=== PATIENT | male | born 1980 | race African-American/Black ===

== ENCOUNTER 2021-02-21 10:56 | Observation (INO) ==
[2021-02-21] MEDS ORDERED: SODIUM CHLORIDE 0.9% 1,000 ML IV STA (12:25)
[2021-02-21] MEDS ORDERED: METOCLOPRAMIDE 10 MG/2 ML VIAL IV STA (12:27)
[2021-02-21 12:38] LABS: Basophils % 0.4 % (0.0-0.8); Eosinophils % 0.1 % (0.00-10.9); Hematocrit 53.8 VOL% (42.0-52.0); Hemoglobin 18.1 GM/DL (14.0-18.0); Immature Granulocytes % 0.5 %; Immature Granulocytes Absolute 0.04 #; Lymphocytes # 1.1 10*3/uL (1.4-4.0); Lymphocytes % 13.7 % (21.2-54.2); Mean Corpuscular HGB Conc 33.6 GM/DL (32-36); Mean Corpuscular Volume 93.6 FL (87-102); Mean Platelet Volume 10.8 FL (9.6-12.0); Monocytes % 4.2 % (1.7-12.7); Neutrophils % 81.1 % (38.7-73.9); Platelet Count 229 T/CUMM (130-400); Red Blood Count 5.75 MC/CUMM (3.8-5.5); Red Cell Distribution Width 12.6 % (9.3-17.3); White Blood Count 7.7 T/CUMM (4-12)
[2021-02-21 12:52] LABS: Albumin 4.1 G/DL (3.4-5.0); Bilirubin,Total 0.4 MG/DL (0.20-1.00); Calcium 8.9 MG/DL (8.5-10.1); Osmolality,Calculated 272.2 MOS/KG (273-304); Potassium 4.7 MMOL/L (3.5-5.1); Total Protein 7.8 G/DL (6.4-8.2)
[2021-02-21] MEDS ORDERED: ACETAMINOPHEN 500 MG TABLET PO STA (12:54)
[2021-02-21 13:09] LABS: Platelet Estimate Normal
[2021-02-21 13:46] LABS: Sedimentation Rate-Westergren 5 MM/HR (0-15)
[2021-02-21] MEDS ORDERED: DEXTROSE 50% 25 GM/50 ML VIAL IV PRN (14:29)
[2021-02-21] MEDS ORDERED: GLUCAGON 1 MG VIAL IM PRN (14:29)
[2021-02-21] MEDS ORDERED: ACETAMINOPHEN 500 MG TABLET PO PRN (14:30)
[2021-02-21] MEDS ORDERED: PROMETHAZINE 25 MG/1 ML VIAL IM PRN (14:30)
[2021-02-21] MEDS ORDERED: ONDANSETRON 4 MG/2 ML VIAL IV PRN (14:30)
[2021-02-21] MEDS ORDERED: amLODIPine 5 MG TABLET PO ONE (15:20)
[2021-02-21] MEDS ORDERED: hydrALAZINE 20 MG/1 ML VIAL IV PRN (15:21)
[2021-02-21 15:25] LABS: Risk Ratio 3.98; Thyroid Stimulating Hormone 0.624 uIU/ml (0.358-3.74); VLDL Cholesterol 24.8 MG/DL
[2021-02-21] MEDS: KETOROLAC 30 MG/1 ML VIAL IV PRN (15:39)
[2021-02-21] MEDS: INSULIN LISPRO 100 UNIT/ML SUBCUT SCH ×2 (16:37→21:25)
[2021-02-21] MEDS: LACTATED RINGERS 1,000 ML IV SCH (16:49)
[2021-02-21] MEDS: SUMAtriptan 6 MG/0.5 ML VIAL SUBCUT PRN (21:25)
[2021-02-22] MEDS: KETOROLAC 30 MG/1 ML VIAL IV PRN ×3 (02:07→20:46)
[2021-02-22] MEDS: LACTATED RINGERS 1,000 ML IV SCH ×3 (02:22→20:46)
[2021-02-22 04:20] LABS: Basophils % 0.4 % (0.0-0.8); Eosinophils # 0.2 10*3/uL (0.0-0.87); Hematocrit 48.6 VOL% (42.0-52.0); Immature Granulocytes % 0.6 %; Immature Granulocytes Absolute 0.05 #; Lymphocytes # 2.7 10*3/uL (1.4-4.0); Lymphocytes % 33.3 % (21.2-54.2); Mean Corpuscular HGB Conc 32.3 GM/DL (32-36); Mean Platelet Volume 11.2 FL (9.6-12.0); Monocytes % 7.4 % (1.7-12.7); Neutrophils % 56.3 % (38.7-73.9); Platelet Count 220 T/CUMM (130-400); Red Blood Count 5.17 MC/CUMM (3.8-5.5); Red Cell Distribution Width 12.5 % (9.3-17.3); White Blood Count 8.2 T/CUMM (4-12)
[2021-02-22 04:40] LABS: Hemoglobin 15.7 GM/DL (14.0-18.0)
[2021-02-22 04:52] LABS: Albumin 3.3 G/DL (3.4-5.0); Bilirubin,Total 0.6 MG/DL (0.20-1.00); Calcium 8.2 MG/DL (8.5-10.1); Osmolality,Calculated 274.8 MOS/KG (273-304); Potassium 3.7 MMOL/L (3.5-5.1); Total Protein 6.3 G/DL (6.4-8.2)
[2021-02-22] MEDS: INSULIN LISPRO 100 UNIT/ML SUBCUT SCH ×4 (07:49→20:48)
[2021-02-22] MEDS: amLODIPine 5 MG TABLET PO SCH (09:08)
[2021-02-22] MEDS: SUMAtriptan 6 MG/0.5 ML VIAL SUBCUT PRN ×2 (09:09→15:05)
[2021-02-22] MEDS ORDERED: ZIPRASIDONE 20 MG/1 ML VIAL IM ONE (11:00)
[2021-02-23 05:03] LABS: Basophils % 0.5 % (0.0-0.8); Eosinophils # 0.3 10*3/uL (0.0-0.87); Eosinophils % 3.5 % (0.00-10.9); Hematocrit 49.3 VOL% (42.0-52.0); Hemoglobin 15.9 GM/DL (14.0-18.0); Immature Granulocytes % 0.4 %; Immature Granulocytes Absolute 0.03 #; Lymphocytes # 2.7 10*3/uL (1.4-4.0); Lymphocytes % 33.3 % (21.2-54.2); Mean Corpuscular HGB Conc 32.3 GM/DL (32-36); Mean Corpuscular Volume 94.8 FL (87-102); Monocytes % 8.8 % (1.7-12.7); Neutrophils % 53.5 % (38.7-73.9); Platelet Count 213 T/CUMM (130-400); Red Cell Distribution Width 12.5 % (9.3-17.3); White Blood Count 8.2 T/CUMM (4-12)
[2021-02-23] MEDS ORDERED: HYDROmorphone 2 MG/1 ML VIAL IV ONE (05:19)
[2021-02-23 05:27] LABS: Calcium 8.3 MG/DL (8.5-10.1); Osmolality,Calculated 276.7 MOS/KG (273-304); Potassium 3.7 MMOL/L (3.5-5.1)
[2021-02-23] MEDS: amLODIPine 5 MG TABLET PO SCH (09:20)
[2021-02-23] MEDS: INSULIN LISPRO 100 UNIT/ML SUBCUT SCH ×4 (09:20→21:47)
[2021-02-23] MEDS: LACTATED RINGERS 1,000 ML IV SCH ×2 (10:35→21:47)
[2021-02-23] MEDS ORDERED: HYDROmorphone 2 MG/1 ML VIAL IV PRN (10:57)
[2021-02-23] MEDS: GABAPENTIN 300 MG CAPSULE PO SCH (12:12)
[2021-02-23 13:20] LABS: PT Patient Result 11.1 SECS (10.5-12.0)
[2021-02-23 16:50] LABS: Appearance,CSF Clear; Lymphocytes,CSF 90 %; Monocytes,CSF 7 %; Neutrophils,CSF 3 %; Red Blood Cell,CSF 5 C/CUMM; White Blood Cell,CSF 2 C/CUMM
[2021-02-23 17:32] LABS: Glucose,CSF 85 MG/DL (40-70)
[2021-02-24] MEDS ORDERED: IBUPROFEN 800 MG TABLET PO ONE ×2 (05:25→05:30)
[2021-02-24] MEDS ORDERED: diphenhydrAMINE 50 MG/1 ML VIAL IV ONE (05:30)
[2021-02-24] MEDS: LACTATED RINGERS 1,000 ML IV SCH ×2 (06:12→15:03)
[2021-02-24] MEDS: INSULIN LISPRO 100 UNIT/ML SUBCUT SCH ×3 (07:23→17:14)
[2021-02-24] MEDS ORDERED: ENALAPRIL 10 MG TABLET PO SCH (09:00)
[2021-02-24] MEDS ORDERED: amLODIPine 10 MG TABLET PO SCH (09:00)
[2021-02-24] MEDS ORDERED: TOPIRAMATE 200 MG PO SCH (09:00)
[2021-02-24] MEDS: GABAPENTIN 300 MG CAPSULE PO SCH (09:50)
[2021-02-24] MEDS: acetaZOLAMIDE 250 MG TABLET PO SCH ×2 (09:57→15:03)
[2021-02-24] MEDS ORDERED: METOCLOPRAMIDE 10 MG/2 ML VIAL IV ONE ×2 (11:30→14:50)
[2021-02-24] MEDS ORDERED: DIHYDROERGOTAMINE 1 MG/ML AMP IV ONE ×2 (11:30→14:49)
[2021-02-24 16:23] VITALS: BP 151/95
[2021-02-24] MEDS ORDERED: AMITRIPTYLINE 25 MG TABLET PO SCH (21:00)
[2021-02-25 13:06] LABS: VDRL Spinal Fluid Negative (Negative)
[2021-02-26 14:26] LABS: M. Tuberculosis PCR Result Negative (Negative); M. Tuberculosis PCR Source CSF
[2021-02-28 12:41] LABS: West Nile Virus Ab, IgG, CSF Negative (Negative); West Nile Virus Ab, IgM, CSF Negative (Negative)
== END 2021-02-24 16:30 | disposition home or self-care (01) ==
LOC: N.4E 10:56 → N.ED 10:56 → N.4E 15:57
PROVIDERS: ADMIT Internal Medicine; ATTEND Internal Medicine